=== PATIENT | male | born 1975 | race Caucasian/White ===

== ENCOUNTER → 2016-11-21 | Outpatient (CLI) | payer BC ==
--- NOTE | 2016-11-21 15:32 | RAD ---
INDICATION: Low back pain and right leg pain and numbness for one day. Pain with walking and bending. TECHNIQUE: Sagittal T1, sagittal T2, sagittal STIR, axial T1, and axial T2 sequences are provided. No comparison is available. FINDINGS: There is no malalignment. There is minimal endplate edema at L3-L4 and L4-L5. This appears degenerative. There is no worrisome marrow lesion. There is disc desiccation from L3-L4 through L5-S1. The conus medullaris is normal in signal intensity and in position. Subcutaneous edema is noted. The numbering system assumes 5 lumbar type vertebral bodies. Findings by individual level are as follows: L1-L2: There is no canal or foraminal compromise. L2-L3: There is minimal facet hypertrophy which is greater on the right. There is no canal or foraminal compromise. L3-L4: Minimal disc bulge is noted without canal or foraminal compromise. L4-L5: Findings compatible with previous laminectomy are noted. Disc osteophyte complex and minimal facet hypertrophy are present. There is no canal stenosis post decompression. There is [id number] bilateral foraminal narrowing with both exiting nerve roots flattened, nerve root flattening greater on the left. L5-S1: There is a shallow left paracentral protrusion with annular fissure. There is minimal facet hypertrophy. There is no canal or foraminal compromise. IMPRESSION: 1. Mild degenerative changes in the lumbar spine without any high-grade canal stenosis. There is foraminal narrowing at L4-L5. 2. Postsurgical changes of decompression at L4-L5. Electronically signed by: oCmpa Lemons MD (11/21/2016 3:28 PM) [id number]
== END | disposition home or self-care (01) ==
LOC: MRI 13:25
PROVIDERS: ATTEND Nurse Practitioner Family
DX: M47.816 Spondylosis without myelopathy or radiculopathy, lumbar region (principal); M79.604 Pain in right leg; R20.0 Anesthesia of skin
CPT/HCPCS: 72148